=== PATIENT | female | born 1980 | race Caucasian/White ===

== ENCOUNTER 2017-03-15 22:36 | Emergency (ER) | payer OTHER ==
[~2017-03-15] VITALS: Ht 167.6 cm; Wt 79.4 kg
[~2017-03-15 22:36] MED LIST: DEPO-PROVER150 MG/ML INJ; NAPROXEN PO; ULTRAM PO; VICODIN 5/500 T1 TAB PO
== END 2017-03-16 00:15 | disposition home or self-care (01) ==
LOC: SED 22:36
DX: S05.01XA Injury of conjunctiva and corneal abrasion without foreign body, right eye, initial encounter (principal); F17.210 Nicotine dependence, cigarettes, uncomplicated; W22.8XXA Striking against or struck by other objects, initial encounter; Y92.009 Unspecified place in unspecified non-institutional (private) residence as the place of occurrence of the external cause
CPT/HCPCS: 99283

== ENCOUNTER 2017-03-18 18:30 | Emergency (ER) | payer OTHER ==
[2017-03-18] MEDS ORDERED: NO MEDICATIONS (18:44)
== END 2017-03-18 20:18 | disposition home or self-care (01) ==
LOC: SED 18:30
DX: S05.01XA Injury of conjunctiva and corneal abrasion without foreign body, right eye, initial encounter (principal); X58.XXXA Exposure to other specified factors, initial encounter; F17.210 Nicotine dependence, cigarettes, uncomplicated; H10.31 Unspecified acute conjunctivitis, right eye
CPT/HCPCS: 90715; 99283